=== PATIENT | female | born 1980 | race African-American/Black ===

== ENCOUNTER 2018-11-30 20:14 | Emergency (ER) | payer OTHER ==
[~2018-11-30] VITALS: Ht 165.1 cm; Wt 113.4 kg
[2018-11-30 20:24] VITALS: Ht 165.1 cm; Wt 113.4 kg
[2018-12-01 00:18] LABS: BASOPHIL % 0.4 % (0-2); PLATELET COUNT 328 x10^3mcL (130-400); RED CELL DISTRIBUTION WIDTH 13.5 % (11.5-14.5)
[2018-12-01 00:24] LABS: CALCIUM 7.9 mg/dL (8.5-10.1); CARBON DIOXIDE 25.8 mmol/L (21-32); CREATININE SERUM 1.3 mg/dL (0.6-1.0); POTASSIUM SERUM 3.7 mmol/L (3.5-5.1)
[2018-12-01 00:33] LABS: BILIRUBIN TOTAL 0.2 mg/dL (0.20-1.00); TOTAL PROTEIN, SERUM 6.4 g/dL (6.4-8.2)
[2018-12-01 00:34] LABS: ALBUMIN 2.6 g/dL (3.4-5.0)
[2018-12-01 02:54] LABS: AMPHETAMINE QUAL UR NONE DETECTED (See below)
[2018-12-01 15:25] VITALS: BP 124/65
== END 2018-12-01 15:25 | disposition home or self-care (01) ==
LOC: ED 20:14
PROVIDERS: Emergency Medicine
DX: E11.65 Type 2 diabetes mellitus with hyperglycemia (principal); I10 Essential (primary) hypertension; Z88.0 Allergy status to penicillin; Z88.5 Allergy status to narcotic agent; Z59.0 Homelessness
CPT/HCPCS: 36415; 82962; Q0092

== ENCOUNTER 2018-12-01 20:27 | Emergency (ER) | payer OTHER ==
[~2018-12-01] VITALS: Ht 165.1 cm; Wt 104.3 kg
[2018-12-01 21:10] VITALS: Ht 165.1 cm; Wt 104.3 kg
[2018-12-02 06:30] VITALS: BP 146/97
== END 2018-12-02 13:06 | disposition home or self-care (01) ==
LOC: ED 20:27
DX: F31.9 Bipolar disorder, unspecified (principal); E10.8 Type 1 diabetes mellitus with unspecified complications; I10 Essential (primary) hypertension; E66.9 Obesity, unspecified; Z68.38 Body mass index [BMI] 38.0-38.9, adult; Z59.0 Homelessness; Z89.512 Acquired absence of left leg below knee; Z88.0 Allergy status to penicillin; Z88.5 Allergy status to narcotic agent
CPT/HCPCS: 82962